=== PATIENT | male | born 1930 | race Caucasian/White ===

== ENCOUNTER 2017-06-18 12:38 | Inpatient (IN) | payer BC, MEDICARE ==
[~2017-06-18] VITALS: Ht 182.9 cm; Wt 100.6 kg
[~2017-06-18 12:38] MED LIST: COLC0.6T37 PO; HYDR-3237 PO; METH4TAB2 PO; None per pt.
[2017-06-18] MEDS ORDERED: MORPHINE SULFATE 4 MG/ML, 1ML ONE ×3 (13:09→16:22)
[2017-06-18] MEDS ORDERED: ONDANSETRON 2MG/ML, 2ML ONE ×2 (13:09→18:40)
[2017-06-18] MEDS: MORPHINE SULFATE 4 MG/ML, 1ML IVPush PRN ×2 (13:14→14:24)
[2017-06-18] MEDS ORDERED: SODIUM CHLORIDE 0.9% 1,000ML IVBOLUS ONE (13:30)
[2017-06-18] MEDS ORDERED: SODIUM CHLORIDE FLUSH 10ML SYR IVF ONE (13:30)
[2017-06-18] MEDS ORDERED: ONDANSETRON 2MG/ML, 2ML IVPush ONE (13:30)
[2017-06-18 13:34] LABS: BASOPHILS # (AUTO) 0.03 x10^3/uL (0-0.1); BASOPHILS % (AUTO) 0 % (0-1); EOSINOPHILS % (AUTO) 0 % (1-7); LYMPHOCYTES # (AUTO) 0.63 x10^3/uL (1-3.4); LYMPHOCYTES % (AUTO) 8 % (22-44); MD NO; MEAN CORPUSCULAR HEMOGLOBIN 33.6 pg (27.5-34.5); MEAN CORPUSCULAR HGB CONC 34.3 g/dL (33.2-36.2); MEAN PLATELET VOLUME 8.9 fL (7.4-10.4); MONOCYTES # (AUTO) 0.59 x10^3/uL (0.2-0.8); MONOCYTES % (AUTO) 8 % (2-9); NEUTROPHILS # (AUTO) 6.29 x10^3/uL (1.8-6.8); NEUTROPHILS % (AUTO) 84 % (42-75); PLATELET COUNT 148 x10^3/uL (130-400); RED BLOOD COUNT 4.37 x10^6/uL (4.38-5.82); RED CELL DISTRIBUTION WIDTH 14.6 % (9.4-14.8)
[2017-06-18 13:45] LABS: ALBUMIN 3.4 g/dL (3.4-5.0); ANION GAP 10 mmol/L (5-15); CALCIUM 8.4 mg/dL (8.5-10.1); CHLORIDE 105 mmol/L (98-107); CREATININE 0.74 mg/dL (0.7-1.3)
[2017-06-18 13:49] LABS: CREATINE KINASE, TOTAL 231 U/L (39-308); TROPONIN I < 0.015 ng/mL (0.000-0.045)
[2017-06-18 16:26] LABS: MICROSCOPIC NOT IND
[2017-06-18 16:29] LABS: CULTURE INDICATED? NO
[2017-06-18] MEDS ORDERED: MORPHINE SULFATE 4 MG/ML, 1ML IVPush PRN (16:30)
[2017-06-18] MEDS ORDERED: SODIUM CHLORIDE 0.9% 1,000 ML IV SCH (16:31)
[2017-06-18] MEDS ORDERED: ENALAPRILAT 1.25 MG/ML, 2ML IVPush PRN (17:00)
[2017-06-18] MEDS ORDERED: ONDANSETRON 2MG/ML, 2ML IVPush PRN (17:00)
[2017-06-18] MEDS ORDERED: morphine SULFATE 10 MG/ML, 1ML IVPush PRN (17:00)
[2017-06-18] MEDS ORDERED: ONDANSETRON ODT 4 MG PO PRN (17:00)
[2017-06-18 17:03] LABS: INTERNATIONAL NORMALIZED RATIO 0.97 (0.93-1.1)
[2017-06-18 17:10] VITALS: BP 163/86
[2017-06-18] MEDS ORDERED: ENOXAPARIN 40 MG/0.4 ML SQ SCH (17:30)
[2017-06-18] MEDS ORDERED: HYDROmorphone 1 MG/ML, 1ML IV PRN ×2 (18:30→22:00)
[2017-06-18] MEDS ORDERED: FENTANYL PF 100 MCG/2ML IV PRN (18:30)
[2017-06-18] MEDS ORDERED: ACETAMINOPHEN 325 MG TABLET PO PRN (18:30)
[2017-06-18] MEDS ORDERED: OXYcodone 5 MG/5 ML ORAL.SOL UDC PO PRN (18:30)
[2017-06-18] MEDS ORDERED: LABETALOL 5MG/ML, 20ML IV PRN (18:30)
[2017-06-18] MEDS ORDERED: hydrALAzine 20 MG/ML, 1ML IV PRN (18:30)
[2017-06-18] MEDS ORDERED: PHENYLEPHRINE 10 MG/ML ONE (18:40)
[2017-06-18] MEDS ORDERED: LIDOCAINE 4%, 4 ML SYR/CANN TP ONE (18:40)
[2017-06-18] MEDS ORDERED: ROCURONIUM 10 MG/ML,10ML ONE (18:40)
[2017-06-18] MEDS ORDERED: SUCCINYLCHOLINE 20 MG/ML, 10ML ONE (18:40)
[2017-06-18] MEDS ORDERED: FENTANYL PF 250 MCG/5ML ONE (18:40)
[2017-06-18] MEDS ORDERED: PROPOFOL 10 MG/ML, 20ML ONE (18:40)
[2017-06-18] MEDS ORDERED: DEXAMETHASONE 4 MG/ML, 1ML ONE (18:40)
[2017-06-18] MEDS ORDERED: MEPERIDINE/PF 50 MG/ML ONE (20:14)
[2017-06-18] MEDS ORDERED: OXYcodone 5 MG/5 ML ORAL.SOL UDC ONE (20:15)
[2017-06-18] MEDS ORDERED: FENTANYL PF 100 MCG/2ML ONE (20:15)
[2017-06-18] MEDS: MEPERIDINE/PF 25MG/0.5ML IVPush PRN ×2 (20:20→20:45)
[2017-06-18] MEDS ORDERED: DIPHENHYDRAMINE 25 MG CAPSULE PO PRN (21:00)
[2017-06-18 21:45] VITALS: BP 138/84
[2017-06-18] MEDS ORDERED: HYDROcodone/APAP 10/325 MG TABLET PO PRN (22:00)
[2017-06-18] MEDS ORDERED: POTASSIUM CHLORIDE 20 MEQ in D5%-0.45% NACL 1,000 ML IV SCH (22:00)
[2017-06-18] MEDS ORDERED: ONDANSETRON 2MG/ML, 2ML IV PRN (22:00)
[2017-06-19 00:58] VITALS: BP 123/75
[2017-06-19] MEDS: CEFAZOLIN PMX 2GM/100ML 100 ML IVPB SCH ×3 (02:10→18:17)
[2017-06-19 04:15] VITALS: BP 101/63
[2017-06-19 05:51] LABS: BASOPHILS % (AUTO) 0 % (0-1); EOSINOPHILS % (AUTO) 0 % (1-7); LYMPHOCYTES % (AUTO) 5 % (22-44); MD NO; MEAN CORPUSCULAR HEMOGLOBIN 33.7 pg (27.5-34.5); MEAN CORPUSCULAR HGB CONC 34.2 g/dL (33.2-36.2); MEAN CORPUSCULAR VOLUME 98.6 fL (81-97); MEAN PLATELET VOLUME 9.3 fL (7.4-10.4); MONOCYTES # (AUTO) 0.31 x10^3/uL (0.2-0.8); MONOCYTES % (AUTO) 5 % (2-9); NEUTROPHILS # (AUTO) 5.41 x10^3/uL (1.8-6.8); NEUTROPHILS % (AUTO) 90 % (42-75); PLATELET COUNT 141 x10^3/uL (130-400); RED BLOOD COUNT 3.57 x10^6/uL (4.38-5.82); RED CELL DISTRIBUTION WIDTH 14.9 % (9.4-14.8)
[2017-06-19] MEDS ORDERED: ENOXAPARIN 30 MG/0.3 ML SQ ONE (06:00)
[2017-06-19 06:02] LABS: CHLORIDE 105 mmol/L (98-107)
[2017-06-19 06:19] LABS: ALANINE AMINOTRANSFERASE 18 U/L (12-78); ALBUMIN 2.9 g/dL (3.4-5.0); ALKALINE PHOSPHATASE 95 U/L (45-117); ANION GAP 6 mmol/L (5-15); BILIRUBIN,TOTAL 0.6 mg/dL (0.2-1.0); CREATININE 0.79 mg/dL (0.7-1.3); TOTAL PROTEIN 6.1 g/dL (6.4-8.2)
[2017-06-19 06:51] VITALS: BP 112/73
[2017-06-19] MEDS: MULTIVITAMINS/MINERALS TABLET PO SCH (08:41)
[2017-06-19] MEDS: SODIUM CHLORIDE FLUSH 10ML SYR IVF SCH ×2 (08:42→20:00)
[2017-06-19] MEDS: OXYcodone 5 MG/5 ML ORAL.SOL UDC PO PRN ×3 (10:59→20:03)
[2017-06-19 13:46] VITALS: BP 103/64
[2017-06-19 20:14] VITALS: BP 126/74
[2017-06-20 02:06] VITALS: BP 107/67
[2017-06-20] MEDS: OXYcodone 5 MG/5 ML ORAL.SOL UDC PO PRN ×5 (02:19→20:27)
[2017-06-20 05:28] LABS: CREATININE 0.86 mg/dL (0.7-1.3)
[2017-06-20] MEDS: ENOXAPARIN 40 MG/0.4 ML SQ SCH (06:03)
[2017-06-20] MEDS: SODIUM CHLORIDE FLUSH 10ML SYR IVF SCH ×2 (09:00→20:27)
[2017-06-20 09:11] VITALS: BP 117/76
[2017-06-20] MEDS: MULTIVITAMINS/MINERALS TABLET PO SCH (09:31)
[2017-06-20 15:34] VITALS: BP 134/79
[2017-06-20 19:29] VITALS: BP 146/88
[2017-06-20] MEDS: NAPHAZOLINE/PHENIRAMINE OPHTH EACHEYE PRN (20:27)
[2017-06-21] MEDS: OXYcodone 5 MG/5 ML ORAL.SOL UDC PO PRN ×4 (01:27→16:51)
[2017-06-21 01:42] VITALS: BP 149/90
[2017-06-21] MEDS: ENOXAPARIN 40 MG/0.4 ML SQ SCH (05:34)
[2017-06-21 07:05] VITALS: BP 101/61
[2017-06-21] MEDS ORDERED: BISACODYL 10 MG SUPP PR PRN (08:30)
[2017-06-21] MEDS ORDERED: POLYETHYLENE GLYCOL 17 GM PACKET PO SCH (09:00)
[2017-06-21] MEDS: MULTIVITAMINS/MINERALS TABLET PO SCH (09:12)
[2017-06-21] MEDS: NAPHAZOLINE/PHENIRAMINE OPHTH EACHEYE PRN (09:13)
[2017-06-21] MEDS: SODIUM CHLORIDE FLUSH 10ML SYR IVF SCH (09:15)
[2017-06-21] MEDS ORDERED: POLY17PO5 PO (10:13)
[2017-06-21] MEDS ORDERED: MULT-484 PO (10:13)
[2017-06-21] MEDS ORDERED: NAPH15DR20 EACHEYE (10:13)
[2017-06-21] MEDS ORDERED: ENOX40SY4 SQ (10:13)
[2017-06-21] MEDS ORDERED: OXYC5SOL8 PO (10:13)
[2017-06-21] MEDS ORDERED: BISA10SU65 PR (10:13)
[2017-06-21] MEDS ORDERED: ERGOCALCIFEROL 50,000 UNIT CAPSULE PO SCH (10:30)
[2017-06-21 14:30] VITALS: BP 118/77
[2017-06-21 16:44] VITALS: BP 142/85
== END 2017-06-21 17:40 | DRG 480 ==
LOC: OR 15:55 → 4NOR 15:56 → OR 17:07
PROVIDERS: ADMIT Internal Medicine; ATTEND Internal Medicine
PROC: 0QS636Z Reposition Right Upper Femur with Intramedullary Internal Fixation Device, Percutaneous Approach (ICD-10-PCS; principal; 2017-06-18 18:00)
DX: S72.141A Displaced intertrochanteric fracture of right femur, initial encounter for closed fracture (principal); E43 Unspecified severe protein-calorie malnutrition; W01.0XXA Fall on same level from slipping, tripping and stumbling without subsequent striking against object, initial encounter; E83.51 Hypocalcemia; G89.29 Other chronic pain; M25.569 Pain in unspecified knee; R73.9 Hyperglycemia, unspecified; I10 Essential (primary) hypertension; Z96.651 Presence of right artificial knee joint; I87.8 Other specified disorders of veins; K59.00 Constipation, unspecified; M47.816 Spondylosis without myelopathy or radiculopathy, lumbar region; Y93.01 Activity, walking, marching and hiking; Z82.49 Family history of ischemic heart disease and other diseases of the circulatory system; Z68.30 Body mass index [BMI] 30.0-30.9, adult; Z85.46 Personal history of malignant neoplasm of prostate; Y92.098 Other place in other non-institutional residence as the place of occurrence of the external cause; Y99.8 Other external cause status
CPT/HCPCS: 36415; 71010; 72100; 76001; 80048; 80053; 81003; 82040; 82550; 82565; 83735; 84100; 84484; 85025; 85610; 85730; 93005; 99285; C1713; J1100; J1650; J2175; J2405; J2704; J3010; J3480; J0330; J0690; J2370; J7030

== ENCOUNTER 2018-09-09 09:56 | Inpatient (IN) | payer BC, MEDICARE ==
[~2018-09-09] VITALS: Ht 182.9 cm; Wt 99.6 kg
[~2018-09-09 09:56] MED LIST changes: +BISA10SU65 PR; +ENOX40SY4 SQ; +MULT-484 PO; +NAPH15DR66 EACHEYE; +OXYC5SOL8 PO; +POLY17PO5 PO
--- NOTE | 2018-09-09 10:27 | NUR ---
ESTHER PA AT BS.
[2018-09-09] MEDS ORDERED: ONDANSETRON 2MG/ML, 2ML IVPush ONE (11:00)
[2018-09-09] MEDS ORDERED: SODIUM CHLORIDE FLUSH 10ML SYR IVF ONE (11:00)
[2018-09-09 11:03] LABS: BASOPHILS # (AUTO) 0.04 x10^3/uL (0-0.1); BASOPHILS % (AUTO) 0 % (0-1); EOSINOPHILS # (AUTO) 0.09 x10^3/uL (0-0.4); EOSINOPHILS % (AUTO) 1 % (1-7); LYMPHOCYTES # (AUTO) 1.54 x10^3/uL (1-3.4); LYMPHOCYTES % (AUTO) 16 % (22-44); MD NO; MEAN CORPUSCULAR HEMOGLOBIN 29.9 pg (27.5-34.5); MEAN CORPUSCULAR HGB CONC 31.9 g/dL (33.2-36.2); MEAN CORPUSCULAR VOLUME 93.9 fL (81-97); MONOCYTES # (AUTO) 0.44 x10^3/uL (0.2-0.8); MONOCYTES % (AUTO) 5 % (2-9); NEUTROPHILS # (AUTO) 7.38 x10^3/uL (1.8-6.8); NEUTROPHILS % (AUTO) 78 % (42-75); PLATELET COUNT 162 x10^3/uL (130-400); RED BLOOD COUNT 4.35 x10^6/uL (4.38-5.82); RED CELL DISTRIBUTION WIDTH 16.2 % (9.4-14.8)
[2018-09-09] MEDS ORDERED: ONDANSETRON 2MG/ML, 2ML ONE (11:09)
[2018-09-09] MEDS ORDERED: MORPHINE SULFATE 4 MG/ML, 1ML ONE ×2 (11:09→14:13)
[2018-09-09 11:11] LABS: ANION GAP 5 mmol/L (5-15); CALCIUM 8.8 mg/dL (8.5-10.1); CHLORIDE 103 mmol/L (98-107); CREATININE 0.78 mg/dL (0.7-1.3)
[2018-09-09] MEDS: MORPHINE SULFATE 4 MG/ML, 1ML IVPush PRN ×2 (11:14→14:14)
[2018-09-09] MEDS ORDERED: OMNIPAQUE 350 MG/ML, 100ML BOTTLE ONE (11:51)
[2018-09-09] MEDS ORDERED: DULO30CA2 PO (13:31)
[2018-09-09] MEDS ORDERED: ATOR-2 PO (13:31)
[2018-09-09] MEDS ORDERED: CYAN500T2 PO (13:31)
[2018-09-09] MEDS ORDERED: CHOL10003 PO (13:31)
[2018-09-09] MEDS ORDERED: MAGN420T PO (13:31)
[2018-09-09] MEDS ORDERED: ALEN70TA6 PO (13:31)
[2018-09-09] MEDS ORDERED: OXYC5CAP2 PO (13:31)
[2018-09-09] MEDS ORDERED: ISOS20TA3 PO (13:31)
[2018-09-09] MEDS ORDERED: METO200T47 PO (13:31)
[2018-09-09] MEDS ORDERED: ACET325T26 PO (13:31)
[2018-09-09] MEDS ORDERED: ASPI81TA45 PO (13:31)
[2018-09-09] MEDS ORDERED: MORPHINE SULFATE 4 MG/ML, 1ML IVPush ONE (14:00)
--- NOTE | 2018-09-09 14:00 | NUR ---
ERP WAS IN FOR RE-EVAL.
--- NOTE | 2018-09-09 14:35 | NUR ---
PT MEDICATED WITH MORPHINE AGAIN, VERBALIZES RELIEF OF PAIN. PT CLEANED FOR URINARY INCONTINENCE AND SMALL AMOUNT STOOL. LINEN CHANGE DONE.
[2018-09-09] MEDS ORDERED: ONDANSETRON ODT 4 MG PO PRN (15:00)
[2018-09-09] MEDS ORDERED: ACETAMINOPHEN 325 MG TABLET PO PRN (15:00)
[2018-09-09] MEDS ORDERED: ONDANSETRON 2MG/ML, 2ML IVPush PRN (15:00)
[2018-09-09] MEDS ORDERED: SODIUM CHLORIDE 0.9% 1,000 ML IV SCH (15:00)
[2018-09-09] MEDS ORDERED: SODIUM CHLORIDE FLUSH 10ML SYR IVF PRN (15:00)
[2018-09-09] MEDS ORDERED: METHOCARBAMOL 500 MG TABLET PO PRN (15:00)
--- NOTE | 2018-09-09 15:09 | NUR ---
ADMITTING MD AT . REPORTED TO SHONDA BRIGGS.
--- NOTE | 2018-09-09 15:23 | NUR ---
RECEIVED REPORT FROM SORAYA BRIGGS
--- NOTE | 2018-09-09 15:32 | NUR ---
GAVE REPORT TO VANIA BRIGGS. PT WILL THEN BE TRANSFERRED TO FLOOR.
[2018-09-09 15:52] VITALS: BP 151/92
[2018-09-09] MEDS: LIDODERM 5% PATCH TD PRN (16:48)
[2018-09-09] MEDS: KETOROLAC 30 MG/1 ML IV PRN (16:54)
[2018-09-09] MEDS: ATORVASTATIN 80 MG TABLET PO SCH (19:47)
[2018-09-09] MEDS: ENOXAPARIN 40 MG/0.4 ML SQ SCH (19:47)
[2018-09-09 19:59] VITALS: BP 116/75
[2018-09-10] VITALS: BP 119/71
[2018-09-10] MEDS: KETOROLAC 30 MG/1 ML IV PRN (04:05)
[2018-09-10 04:44] LABS: BASOPHILS # (AUTO) 0.03 x10^3/uL (0-0.1); BASOPHILS % (AUTO) 1 % (0-1); EOSINOPHILS # (AUTO) 0.14 x10^3/uL (0-0.4); EOSINOPHILS % (AUTO) 3 % (1-7); LYMPHOCYTES # (AUTO) 1.64 x10^3/uL (1-3.4); LYMPHOCYTES % (AUTO) 32 % (22-44); MD NO; MEAN CORPUSCULAR HEMOGLOBIN 31.4 pg (27.5-34.5); MEAN CORPUSCULAR HGB CONC 34.2 g/dL (33.2-36.2); MEAN CORPUSCULAR VOLUME 91.8 fL (81-97); MEAN PLATELET VOLUME 8.3 fL (7.4-10.4); MONOCYTES # (AUTO) 0.45 x10^3/uL (0.2-0.8); MONOCYTES % (AUTO) 9 % (2-9); NEUTROPHILS # (AUTO) 2.86 x10^3/uL (1.8-6.8); NEUTROPHILS % (AUTO) 56 % (42-75); PLATELET COUNT 141 x10^3/uL (130-400); RED BLOOD COUNT 3.86 x10^6/uL (4.38-5.82); RED CELL DISTRIBUTION WIDTH 15.5 % (9.4-14.8)
[2018-09-10 04:57] LABS: ALANINE AMINOTRANSFERASE 24 U/L (12-78); ALBUMIN 3.3 g/dL (3.4-5.0); ANION GAP 4 mmol/L (5-15); CALCIUM 7.9 mg/dL (8.5-10.1); CHLORIDE 101 mmol/L (98-107); CHOLESTEROL, TOTAL 124 mg/dL (140-239); CREATININE 0.83 mg/dL (0.7-1.3); TRIGLYCERIDES 92 mg/dL (50-200); VLDL CHOLESTEROL 18 mg/dL (0-25)
[2018-09-10 04:59] LABS: ALKALINE PHOSPHATASE 141 U/L (45-117); BILIRUBIN,TOTAL 1.3 mg/dL (0.2-1.0); CHOL/HDL RATIO 2.1; HDL CHOL % 48 % (26-37); HDL CHOLESTEROL (DIRECT) 60 mg/dL (40-60); LDL CHOLESTEROL,CALCULATED 46 mg/dL (54-169); LDL/HDL RATIO 0.8 (0.5-3.0); TOTAL PROTEIN 6.3 g/dL (6.4-8.2)
[2018-09-10] MEDS ORDERED: METOPROLOL SUCCINATE 50 MG TAB.ER.24H ONE (05:18)
[2018-09-10] MEDS: METOPROLOL SUCCINATE 100 MG TAB.ER.24H PO SCH (05:37)
[2018-09-10 06:37] VITALS: BP 120/72
[2018-09-10] MEDS: ASPIRIN 81 MG TABLET EC PO SCH (08:25)
[2018-09-10] MEDS: CHOLECALCIFEROL 1,000 UNIT TABLET PO SCH (08:25)
[2018-09-10] MEDS: ISOSORBIDE MONONITRATE ER 30 MG TABLET PO SCH (08:25)
[2018-09-10] MEDS: DULOXETINE 30 MG CAPSULE.DR PO SCH (08:25)
[2018-09-10 13:46] VITALS: BP 100/63
[2018-09-10 19:03] VITALS: BP 111/61
[2018-09-10] MEDS: ATORVASTATIN 80 MG TABLET PO SCH (19:53)
[2018-09-10] MEDS: ENOXAPARIN 40 MG/0.4 ML SQ SCH (19:54)
[2018-09-11 00:48] VITALS: BP 118/69
[2018-09-11] MEDS ORDERED: ALENDRONATE 70 MG TABLET PO SCH (06:30)
[2018-09-11 07:18] VITALS: BP 145/84
[2018-09-11] MEDS: METOPROLOL SUCCINATE 100 MG TAB.ER.24H PO SCH (07:37)
[2018-09-11] MEDS: ISOSORBIDE MONONITRATE ER 30 MG TABLET PO SCH (08:29)
[2018-09-11] MEDS: CHOLECALCIFEROL 1,000 UNIT TABLET PO SCH (08:29)
[2018-09-11] MEDS: DULOXETINE 30 MG CAPSULE.DR PO SCH (08:29)
[2018-09-11] MEDS: ASPIRIN 81 MG TABLET EC PO SCH (08:29)
[2018-09-11 12:11] VITALS: BP 113/64
[2018-09-11] MEDS: LIDODERM 5% PATCH TD PRN (16:01)
[2018-09-11 19:15] VITALS: BP 130/78
[2018-09-11 19:34] VITALS: BP 122/69
[2018-09-11] MEDS: ENOXAPARIN 40 MG/0.4 ML SQ SCH (20:14)
[2018-09-11] MEDS: ATORVASTATIN 80 MG TABLET PO SCH (20:15)
[2018-09-12 00:53] VITALS: BP 128/76
[2018-09-12] MEDS: METOPROLOL SUCCINATE 100 MG TAB.ER.24H PO SCH (06:33)
[2018-09-12 06:34] VITALS: BP 164/95
[2018-09-12] MEDS: CHOLECALCIFEROL 1,000 UNIT TABLET PO SCH (08:20)
[2018-09-12] MEDS: ASPIRIN 81 MG TABLET EC PO SCH (08:20)
[2018-09-12] MEDS: DULOXETINE 30 MG CAPSULE.DR PO SCH (08:20)
[2018-09-12] MEDS: ISOSORBIDE MONONITRATE ER 30 MG TABLET PO SCH (08:20)
[2018-09-12] MEDS ORDERED: ACET325T14 PO (10:49)
[2018-09-12] MEDS ORDERED: TRAM50TA2 PO (10:49)
[2018-09-12] MEDS ORDERED: METH500T7 PO (10:49)
[2018-09-12] MEDS ORDERED: IBUP-1221 PO (10:57)
[2018-09-12 12:04] VITALS: BP 109/69
[2018-09-16] MEDS ORDERED: ALENDRONATE 70 MG TABLET PO SCH (06:00)
== END 2018-09-12 13:22 | DRG 543 ==
LOC: ED 10:19 → EDIP 14:32 → 3NW 15:46
PROVIDERS: ADMIT Hospitalist; ATTEND Hospitalist
DX: M80.08XA Age-related osteoporosis with current pathological fracture, vertebra(e), initial encounter for fracture (principal); E87.1 Hypo-osmolality and hyponatremia; M25.552 Pain in left hip; W01.198A Fall on same level from slipping, tripping and stumbling with subsequent striking against other object, initial encounter; E78.5 Hyperlipidemia, unspecified; F32.9 Major depressive disorder, single episode, unspecified; R00.0 Tachycardia, unspecified; I10 Essential (primary) hypertension; I25.10 Atherosclerotic heart disease of native coronary artery without angina pectoris; K40.90 Unilateral inguinal hernia, without obstruction or gangrene, not specified as recurrent; M81.0 Age-related osteoporosis without current pathological fracture; Z85.46 Personal history of malignant neoplasm of prostate; Z82.49 Family history of ischemic heart disease and other diseases of the circulatory system; Y93.89 Activity, other specified; Y92.89 Other specified places as the place of occurrence of the external cause; Y99.8 Other external cause status
CPT/HCPCS: 36415; 71260; 80048; 80053; 80061; 84443; 85025; 96374; 96375; 99285; G0378; J1650; J1885; J2405; Q9967; J7030